=== PATIENT | male | born 1935 | race Caucasian/White ===

== ENCOUNTER 2021-09-14 15:42 | Inpatient (IN) | payer MEDICARE, OTHER ==
[~2021-09-14] VITALS: Ht 172.7 cm; Wt 83.5 kg
--- NOTE | 2021-09-14 15:50 | NUR ---
bc39, from home, weakness x 3 weeks and 02 desat 89% on RA, BS 174
[2021-09-14] MEDS ORDERED: ACETAMINOPHEN 650 MG/SUPP.RECT RC ONE ×2 (16:00→16:05)
[2021-09-14] MEDS ORDERED: CEFEPIME 1 GM in IV D5W 50 ML IV ONE (16:00)
[2021-09-14] MEDS ORDERED: VANCOMYCIN 1 GM in IV D5W 250 ML IV ONE (16:00)
--- NOTE | 2021-09-14 16:00 | NUR ---
INITIATED LAC #18G S/L AND RFA #20G S/L PATENT AND INTACT
[2021-09-14] MEDS ORDERED: CEFEPIME 1 GM VIAL ONE (16:05)
[2021-09-14] MEDS ORDERED: VANCOMYCIN 1 GM VIAL ONE (16:05)
[2021-09-14 16:11] LABS: BASOPHILS % (AUTO) 0.1 % (0.0-2.0); HEMATOCRIT 38 % (39-51); HEMOGLOBIN 12.5 g/dL (13.5-17.5); LYMPHOCYTES # (AUTO) 1.6 K/uL (0.8-4.8); LYMPHOCYTES % (AUTO) 23.6 % (20.0-44.0); MEAN CORPUSCULAR HGB CONC 33 g/dl (31.0-36.0); MEAN CORPUSCULAR VOLUME 91 fL (80-96); MONOCYTES # (AUTO) 0.4 K/uL (0.1-1.30); MONOCYTES % (AUTO) 6.4 % (2.0-12.0); NEUTROPHILS # (AUTO) 4.7 K/uL (1.8-8.9); NEUTROPHILS % (AUTO) 69.9 % (43.0-81.0); PLATELET COUNT (AUTO) 103 K/uL (150-450); RED BLOOD CELL COUNT(AUTO) 4.14 MIL/uL (4.5-6.0); WHITE BLOOD COUNT (AUTO) 6.8 K/uL (4.3-11.0)
--- NOTE | 2021-09-14 16:17 | NUR ---
F/C INSERTED WITH YELLOW URINE OUTPUT. PATENT AND INTACT
[2021-09-14] MEDS ORDERED: GLIM2TAB31 PO (16:18)
[2021-09-14] MEDS ORDERED: ERGO500093 PO (16:18)
[2021-09-14] MEDS ORDERED: MAGN400O6 PO (16:18)
[2021-09-14] MEDS ORDERED: SITA100T PO (16:18)
[2021-09-14] MEDS ORDERED: PANT40TA49 PO (16:18)
[2021-09-14] MEDS ORDERED: DOCU-275 PO (16:18)
[2021-09-14] MEDS ORDERED: FERR325T24 PO (16:18)
[2021-09-14] MEDS ORDERED: CYAN500T9 PO (16:18)
[2021-09-14] MEDS ORDERED: ROSU10TA29 PO (16:18)
[2021-09-14] MEDS ORDERED: SENN-261 PO (16:18)
[2021-09-14] MEDS ORDERED: ASPI-1420 PO (16:18)
[2021-09-14] MEDS ORDERED: METF-440 PO (16:18)
[2021-09-14 16:20] LABS: CALCIUM, SERUM 8.6 mg/dL (8.5-10.1); CARBON DIOXIDE 25 mmol/L (21-32); CHLORIDE 104 mmol/L (98-107); CREATININE 1.7 mg/dL (0.6-1.3); GLUCOSE 151 mg/dL (74-106); POTASSIUM 3.9 mmol/L (3.5-5.1); SODIUM SERUM 141 mmol/L (136-145); UREA NITROGEN, BLOOD 24 mg/dL (7-18)
[2021-09-14] MEDS ORDERED: BIMA2.5D5 EACHEYE (16:21)
[2021-09-14] MEDS ORDERED: BRIM5DRO EACHEYE (16:21)
[2021-09-14] MEDS ORDERED: DORZ10DR11 EACHEYE (16:21)
[2021-09-14 16:26] LABS: ALANINE AMINOTRANSFERASE 19 U/L (12-78); ALBUMIN 2.8 g/dL (3.4-5.0); ALKALINE PHOSPHATASE 88 U/L (46-116); ASPARTATE AMINOTRANSFERASE 47 U/L (15-37); BILIRUBIN,DIRECT 0.7 mg/dL (0.0-0.2); TOTAL PROTEIN, SERUM 6.7 g/dL (6.4-8.2)
[2021-09-14 16:47] LABS: BILIRUBIN,URINE SMALL (NEGATIVE); COLOR,URINE YELLOW (YELLOW); LEUKOCYTE ESTERASE ,URINE Negative (NEGATIVE); NITRITE, URINE Negative (NEGATIVE); PH,URINE 5.5 (5.0-8.0); PROTEIN,URINE 100 mg/dl (NEGATIVE); UGLUCOSE Negative (NEGATIVE)
[2021-09-14 16:56] LABS: BACTERIA,URINE 1+ /HPF (None Seen); URINE AMORPHOUS PHOSPHATES MOD /HPF (None Seen); WBC,URINE NONE SEEN /HPF (0-3)
--- NOTE | 2021-09-14 17:00 | NUR ---
PT UNSTABLE FOR CT AT RADIOLOGY. XRAY BEING DONE AT BEDSIDE
--- NOTE | 2021-09-14 17:10 | NUR ---
PT PUT ON HIFLOW O2 AT 40L. SATTING AT 92%.
--- NOTE | 2021-09-14 17:21 | NUR ---
GAVE UPDATE TO SIRAN DAUGHTER
[2021-09-14] MEDS ORDERED: IV NS 0.9% 1,000 ML IV ONE (17:30)
--- NOTE | 2021-09-14 17:57 | NUR ---
ABG DRAWN BY RT
[2021-09-14] MEDS ORDERED: DEXAMETHASONE SOD PHOSPHATE 10 MG/ML VIAL ONE (17:58)
[2021-09-14] MEDS ORDERED: Z GUARD REMEDY 2 OZ OINT TP PRN (18:00)
[2021-09-14] MEDS ORDERED: DEXAMETHASONE SOD PHOSPHATE 10 MG/ML VIAL IV ONE (18:00)
[2021-09-14] MEDS ORDERED: ONDANSETRON HCL/PF 4 MG/2 ML VIAL IVP PRN (18:00)
[2021-09-14] MEDS ORDERED: ENOXAPARIN SODIUM 30 MG/0.3 ML DISP.SYRIN SQ SCH (18:00)
[2021-09-14] MEDS ORDERED: MAGNESIUM HYDROXIDE 30 ML UDC PO PRN (18:00)
--- NOTE | 2021-09-14 18:36 | NUR ---
NURSING SUP GAVE ICU BED 259.
--- NOTE | 2021-09-14 18:50 | NUR ---
Ray pablo in EDM - 09/14/21 at 1904 by RACQUEL REPORT GIVEN TO PROFESSIONAL AMBULANCE EMT. PT TRANSFERRING TO [facility]. ALL BELONGINGS WITH PT. VSS
--- NOTE | 2021-09-14 19:20 | NUR ---
PICCLINE NURSE AT BEDSIDE. CONSENT GIVEN BY SEPIDEH MENDOZA.
--- NOTE | 2021-09-14 19:36 | NUR ---
RN NOTE REPORT RECEIVED BY MICHELLE OLIVAS FOR NOAH.
--- NOTE | 2021-09-14 19:36 | NUR ---
REPORT GIVEN TO KEYLA CROCODILE FARMER FOR NOAH
--- NOTE | 2021-09-14 19:47 | NUR ---
RN NOTE SPOKE WITH DR. ESTRADA ABOUT PT LOW PLATELET OF 103. ORDERED TO ADMINISTER LOVENOX SCHEDULED. ORDER NOTED AND WILL CARRY OUT.
--- NOTE | 2021-09-14 19:56 | NUR ---
FARM DEMONSTRATOR AT PT'S BEDSIDE
--- NOTE | 2021-09-14 19:57 | NUR ---
COVID PCR COLLECTED VIA CONDOMINIUM MANAGER AND SENT TO LAB
[2021-09-14] MEDS: IV NS 0.9% 1,000 ML IV PRN (20:33)
[2021-09-14 20:36] VITALS: BP 99/56
--- NOTE | 2021-09-14 20:37 | NUR ---
PT TRANSFERRED TO ICU 259 VIA ACLS PROTOCOL. ALL PT BELONGINGS WITH PT. VSS
--- NOTE | 2021-09-14 20:40 | NUR ---
RN NOTE PT BROUGHT TO ICU VIA GURNEY FROM ER. PT IS ON HIGH FLOW AT 30 LPM AT 75% WITH OXYGEN SATURATION AT 92%. PT IS NOT ALERT AND IS CONFUSED. ON MONITOR SHOWING NSR. LANDEROS CATH NOTED. SACRAL WOUND NOTED. IV ACCESS ON RIGHT UPPER ARM PICC LINE, LEFT FOREARM #20, AND LEFT AC #18 NOTED. LINES FLUSHED, PATENT, AND INTACT WITH NO S/SX OF INFILTRATION. ALL SAFETY MEASURES IMPLEMENTED. BED ALARM ON. BED LOCKED AND IN LOWEST POSITION. WILL CONTINUE TO MONITOR AND ASSESS FOR ANY CHANGES.
[2021-09-14] MEDS: ENOXAPARIN SODIUM 30 MG/0.3 ML DISP.SYRIN SQ SCH (20:44)
[2021-09-14] MEDS: BRIMONIDINE TARTRATE OPHT SOLN 5 ML BOTTLE LEFTEYE SCH (20:48)
[2021-09-14 21:00] VITALS: BP 109/42
--- NOTE | 2021-09-14 21:46 | NUR ---
RT NOTE PT FIO2 TITRATED TO 75% DUE TO DESATURATION. PT CURRENTLY ON 30L 75% SAT 91%. Addendum: 09/14/21 at 2352 by CYNTHIA PARIKH RT Amended: Links added.
[2021-09-14 22:00] VITALS: BP 88/59
[2021-09-14] MEDS: ATORVASTATIN 10 MG TABLET PO SCH (22:04)
[2021-09-14 23:00] VITALS: BP 85/55
[2021-09-15] VITALS (24 sets, daily range): BP systolic 90–126; BP diastolic 40–78
--- NOTE | 2021-09-15 01:55 | NUR ---
RT NOTE FIO2 INCREASE DUE TO PT SATURATING. MICHELLE WINSTON. Addendum: 09/15/21 at 0644 by CYNTHIA PARIKH RT Amended: Links added.
[2021-09-15 04:54] LABS: BASOPHILS % (AUTO) 0.1 % (0.0-2.0); HEMATOCRIT 33 % (39-51); HEMOGLOBIN 11.1 g/dL (13.5-17.5); LYMPHOCYTES % (AUTO) 21.6 % (20.0-44.0); MEAN CORPUSCULAR HGB CONC 33 g/dl (31.0-36.0); MEAN CORPUSCULAR VOLUME 92 fL (80-96); MONOCYTES # (AUTO) 0.2 K/uL (0.1-1.30); MONOCYTES % (AUTO) 4.7 % (2.0-12.0); NEUTROPHILS # (AUTO) 3.3 K/uL (1.8-8.9); NEUTROPHILS % (AUTO) 73.6 % (43.0-81.0); PLATELET COUNT (AUTO) 84 K/uL (150-450); RED BLOOD CELL COUNT(AUTO) 3.62 MIL/uL (4.5-6.0); WHITE BLOOD COUNT (AUTO) 4.5 K/uL (4.3-11.0)
[2021-09-15 05:00] LABS: ALANINE AMINOTRANSFERASE 21 U/L (12-78); ALBUMIN 2.3 g/dL (3.4-5.0); ALKALINE PHOSPHATASE 70 U/L (46-116); ASPARTATE AMINOTRANSFERASE 41 U/L (15-37); BILIRUBIN,TOTAL 0.8 mg/dL (0.2-1.0); CALCIUM, SERUM 7.9 mg/dL (8.5-10.1); CARBON DIOXIDE 22 mmol/L (21-32); CHLORIDE 106 mmol/L (98-107); CREATININE 1.4 mg/dL (0.6-1.3); GLUCOSE 286 mg/dL (74-106); MAGNESIUM 1.7 mg/dL (1.8-2.4); PHOSPHORUS 3.6 mg/dL (2.5-4.9); POTASSIUM 3.8 mmol/L (3.5-5.1); SODIUM SERUM 140 mmol/L (136-145); TOTAL PROTEIN, SERUM 5.8 g/dL (6.4-8.2); UREA NITROGEN, BLOOD 28 mg/dL (7-18)
[2021-09-15 05:15] LABS: CHOLESTEROL 127 mg/dL (<200); HDL CHOLESTEROL 41 mg/dL (40-60); LDL 65 mg/dL (0-99); THYROID STIMULATING HORMONE 0.368 uIU/mL (0.358-3.74); TRIGLYCERIDES 87 mg/dL (30-150)
[2021-09-15] MEDS ORDERED: CEFEPIME 2 GM in IV D5W 100 ML IV SCH (06:00)
[2021-09-15 06:38] LABS: LYMPHOCYTES % (MANUAL) 22 % (16-48); MONOCYTES % (MANUAL) 4 % (0-11.0); NEUTROPHILS % (MANUAL) 74 (42-76)
--- NOTE | 2021-09-15 06:44 | NUR ---
RN NOTE NO CHANGES IN PT CONDITION DURING SHIFT. PT IS ON HIGHFLOW OXYGEN WITH CURRENT SETTINGS NOW AT 30L AND 85%. TOLERATING CURRENT SETTINGS WELL. PT ON MONITOR SHOWING NSR. LANDEROS CATH OUTPUT DURING SHIFT WAS 425ML. IV ACCESS NOTED ON RIGHT UPPER ARM PICC LINE, LEFT FOREARM #20, AND LEFT AC #18. LINES FLUSHED, PATENT, AND INTACT WITH NO S/SX OF INFILTRATION. ALL DUE MEDS GIVEN ORDERED. PT KEPT CLEAN AND COMFORTABLE. ALL SAFETY MEASURES IMPLEMENTED. BED ALARM ON. BED LOCKED AND IN LOWEST POSITION. WILL ENDORSE TO MORNING SHIFT RN FOR NOAH. .
--- NOTE | 2021-09-15 07:30 | NUR ---
RN NOTES PT FOUND SLEEPING SEMI FOWLERS POSITION DISPLAYING NO S/S OF DISTRESS, FLACC = 0 AND BREATHING IS EVEN AND UNLABORED ON HIGH FLOW OXYGEN. PT IS CONFUSED, REPORTS FROM TALEND ETL DEVELOPER RN THAT PT ATTEMPTED TO STRIKE STAFF AND REMOVE LINES. SUCH, PT ON SOFT RESTRAINTS BILATERAL WRISTS AND MITTENS APPLIED. PULSES PALAPATED BILTERALLY. MITTENS TAKEN OFF AND CAP REFILL TESTED, < 3 SECONDS BILATERALLY, THEN REAPPLIED. R UA PICC IS PATIENT AND INTACT. LANDEROS CATH IS BELOW PT DRAINING BY GRAVITY. VSS, RN WILL TREAT AND MONITOR THROUGHOUT SHIFT. SAFETY MEASURES IN PLACE, BED LOCKED AND IN LOWEST POSITION, SIDE RAILS UPX3, CALL LIGHT WITHIN REACH, BED ALARM ARMED.
[2021-09-15] MEDS: PANTOPRAZOLE 40 MG TABLET.DR PO SCH (08:00)
[2021-09-15] MEDS: Magnesium 1GM/D5W 100ML PREMIX 100 ML IV SCH ×2 (08:01→09:04)
[2021-09-15] MEDS: DOCUSATE SODIUM 100 MG CAPSULE PO SCH ×2 (09:00→17:02)
[2021-09-15] MEDS: FERROUS SULFATE (325 MG) 325 MG/TAB TABLET PO SCH ×2 (09:00→17:02)
[2021-09-15] MEDS: LINAGLIPTIN 5 MG TABLET PO SCH (09:00)
[2021-09-15] MEDS: ASPIRIN EC 81 MG TABLET.DR PO SCH (09:00)
[2021-09-15] MEDS: SENNOSIDES 8.6 MG TABLET PO SCH ×2 (09:00→17:02)
[2021-09-15] MEDS ORDERED: DEXAMETHASONE SOD PHOSPHATE 4 MG/ML VIAL IV SCH (09:00)
[2021-09-15] MEDS: CYANOCOBALAMIN 500 MCG TABLET PO SCH (09:00)
[2021-09-15] MEDS: DEXAMETHASONE SOD PHOSPHATE 4 MG/ML VIAL IV SCH (09:00)
[2021-09-15] MEDS: GLIMEPIRIDE 1 MG TABLET PO SCH ×3 (09:00→17:02)
[2021-09-15] MEDS: TIMOLOL MAL/DORZOLAM HCL OPHTH 10 ML BOTTLE EACHEYE SCH ×2 (09:01→17:03)
[2021-09-15] MEDS: BRIMONIDINE TARTRATE OPHT SOLN 5 ML BOTTLE LEFTEYE SCH ×2 (09:05→17:03)
--- NOTE | 2021-09-15 10:30 | NUR ---
RN NOTE CVP STARTED
[2021-09-15 11:51] LABS: ABG BASE EXCESS -0.9 mmol/L; ABG PH 7.467 (7.350-7.450); ABG PO2 57.1 mmHg (75.0-100.0); MetHb 0.2 % (0.0-1.5); O2Hb 89.8 % (94.0-97.0); SITE, ABG Left Radial; VENT MODE, BG SIMPLE MASK
[2021-09-15] MEDS: IV NS 0.9% 1,000 ML IV PRN (11:54)
[2021-09-15] MEDS: VANCOMYCIN 1 GM in IV D5W 250ml IV SCH (12:08)
--- NOTE | 2021-09-15 12:30 | NUR ---
TAILOR WOMEN'S GARMENT ALTERATION COMMUNICATION RN SPOKE TO FRANCES ANN TO REPORT PT'S VARIED LEVELS OF ANXIETY. TAILOR WOMEN'S GARMENT ALTERATION GAVE ORDERS, 0.25 MG ATIVAN IV ONE TIME NOW. RN READ BACK ORDER TO CONFIRM AND WILL EXECUTE DIRECTED.
[2021-09-15] MEDS ORDERED: LORAZEPAM INJ 2 MG/ML VIAL IV ONE (13:00)
[2021-09-15] MEDS ORDERED: VANCOMYCIN 1 GM in IV D5W 250ml IV SCH (16:00)
[2021-09-15] MEDS: AZITHROMYCIN 500 MG in IV D5W 250 ML IV SCH (17:02)
[2021-09-15] MEDS: ACETAMINOPHEN 325 MG TABLET PO PRN (17:02)
[2021-09-15] MEDS: CEFEPIME 2 GM in IV D5W 100 ML IV SCH (17:02)
--- NOTE | 2021-09-15 19:15 | NUR ---
RN NOTES PT FOUND SLEEPING SEMI FOWLERS POSITION DISPLAYING NO S/S OF DISTRESS, FLACC = 0 AND BREATHING IS EVEN AND UNLABORED ON HIGH FLOW OXYGEN. PT CONTINUES TO BE CONFUSED. PT STILL ON SOFT RESTRAINTS BILATERAL WRISTS AND MITTENS APPLIED. PULSES PALAPATED BILTERALLY. MITTENS TAKEN OFF AND CAP REFILL TESTED, < 3 SECONDS BILATERALLY, THEN REAPPLIED. R UA PICC IS PATIENT AND INTACT. LANDEROS CATH IS BELOW PT DRAINING BY GRAVITY. VSS, SBAR AND REPORT GIVEN TO YARN TWISTER. ALL QUESTIONS ANSWERED. SAFETY MEASURES IN PLACE, BED LOCKED AND IN LOWEST POSITION, SIDE RAILS UPX3, CALL LIGHT WITHIN REACH, BED ALARM ARMED. PT ENDORSED IN STABLE CONDITION FOR NOAH.
[2021-09-15] MEDS: ATORVASTATIN 10 MG TABLET PO SCH (21:07)
[2021-09-15] MEDS: ENOXAPARIN SODIUM 30 MG/0.3 ML DISP.SYRIN SQ SCH (21:08)
--- NOTE | 2021-09-15 23:00 | NUR ---
RN NOTE PT RESTLESS, UNABLE TO KEEP STILL TO KEEP CONSISTENT READING OF O2 SAT. PT ATTEMPTS TO BITE STAFF WHEN TRYING TO ADJUST PULSE OX
[2021-09-16] VITALS (54 sets, daily range): BP systolic 68–179; BP diastolic 46–118
--- NOTE | 2021-09-16 01:15 | NUR ---
RN NOTE PT SATURATION LOW TO MID 80S. NON REBREATHER MASK AT 15 LPM PLACED,. WILL CONT TO MONITOR O2 SAT 93% AT THIS TIME
[2021-09-16 04:51] LABS: HEMATOCRIT 35 % (39-51); HEMOGLOBIN 11.4 g/dL (13.5-17.5); LYMPHOCYTES % (AUTO) 6.8 % (20.0-44.0); MEAN CORPUSCULAR HGB CONC 33 g/dl (31.0-36.0); MEAN CORPUSCULAR VOLUME 92 fL (80-96); MONOCYTES # (AUTO) 0.3 K/uL (0.1-1.30); NEUTROPHILS # (AUTO) 12.9 K/uL (1.8-8.9); NEUTROPHILS % (AUTO) 91.2 % (43.0-81.0); PLATELET COUNT (AUTO) 102 K/uL (150-450); RED BLOOD CELL COUNT(AUTO) 3.81 MIL/uL (4.5-6.0); WHITE BLOOD COUNT (AUTO) 14.1 K/uL (4.3-11.0)
[2021-09-16] MEDS: CEFEPIME 2 GM in IV D5W 100 ML IV SCH ×2 (05:01→18:28)
[2021-09-16 05:10] LABS: CALCIUM, SERUM 8.2 mg/dL (8.5-10.1); CARBON DIOXIDE 24 mmol/L (21-32); CHLORIDE 108 mmol/L (98-107); CREATININE 1.3 mg/dL (0.6-1.3); GLUCOSE 313 mg/dL (74-106); MAGNESIUM 2.1 mg/dL (1.8-2.4); PHOSPHORUS 2.3 mg/dL (2.5-4.9); POTASSIUM 3.8 mmol/L (3.5-5.1); SODIUM SERUM 141 mmol/L (136-145); UREA NITROGEN, BLOOD 28 mg/dL (7-18)
[2021-09-16] MEDS: IV NS 0.9% 1,000 ML IV PRN (05:16)
[2021-09-16] MEDS: VANCOMYCIN 1 GM in IV D5W 250ml IV SCH (06:16)
--- NOTE | 2021-09-16 07:23 | NUR ---
RN CLOSING NOTE PT CONT TO REMOVE O2 SAT MONITOR, ATTEMPTS TO BITE STAFF WHEN ADJUSTING NASAL CANNULA OR MASK. PT REMAINS ON HF 40L FIO2 100% WITH NONREBREATHER MASK AT 15L. PT BED BATH DONE LINENS CHANGED. PT INDEPENDENT WITH BED MOBILITY. MONITOR FOR ASPIRATION RISK HELD MEDS IN MOUTH BEFORE SWALLOWING. SAFETY MEASURES IN PLACE. REPORT GIVEN TO DAY SHIFT RN FOR CONTINUATION OF CARE.
[2021-09-16] MEDS: PANTOPRAZOLE 40 MG TABLET.DR PO SCH (07:30)
--- NOTE | 2021-09-16 07:30 | NUR ---
RN NOTES PT FOUND RESTLESS DISPLAYING S/S OF MILD AGITATION, BREATHING IS MODERATELY STRENUOUS AND FLACC = 3. PT THROUGHOUT NIGHT WAS PLACED ON NRB TO IMPROVE OXYGENATION STATUS. PT HAS BILATERAL SOFT WRIST RESTRAINTS, PULSES PALPATED BILATERALLY FINDING RADIAL PULSE, CAP REFILL TESTED BILATERALLY AND FOUND < 3 SECONDS. XEROX MACHINE MECHANIC REPORTS S/S CONSISTENT WITH METABOLIC ENCEPHALOPATHY, INSOMNIA, RESTLESSNESS, AGITATION, ALTERATION IN MENTAL STATUS INCLUDING AN ATTEMPT TO BITE XEROX MACHINE MECHANIC RN. R UA PICC IS PATIENT AND INTACT. LANDEROS CATH BELOW PATIENT DRAINING BY GRAVITY. RN WILL MONITOR AND TREAT THROUGHOUT SHIFT. SAFETY MEASURES IN PLACE, BED LOCKED AND IN LOWEST POSITION, SIDE RAILS UPX2, CALL LIGHT WITHIN REACH, PT INSTRUCTED TO CALL FOR ASSISTANCE.
--- NOTE | 2021-09-16 07:37 | NUR ---
WOUND CARE CONSULT: REVIEWED CHART, NURSING DOCUMENTATION AND PHOTO WHICH INDICATED SACRAL/GLUTEAL CREASE SCARRING WITH INCONTINENCE/MOISTURE ASSOCIATED SKIN DAMAGE OVER SCARRING. RECOMMENDATIONS MADE FOR SKIN PROTECTION. DISCUSSED WITH NURSING STAFF. PT IS ON MELISSA ISOFLEX LOW AIRLOSS BED. PER NURSING STAFF, PT MOVES ABOUT IN THE BED. MD IN AGREEMENT WITH PLAN OF CARE.
--- NOTE | 2021-09-16 08:30 | NUR ---
RN NOTE ST EVALUATED PT, GAVE RECOMMENDATION OF INSERTION OF NGT. RN WILL RELAY THIS INFORMATION TO HOSPITALIST.
[2021-09-16] MEDS: LINAGLIPTIN 5 MG TABLET PO SCH (09:00)
[2021-09-16] MEDS: SENNOSIDES 8.6 MG TABLET PO SCH (09:00)
[2021-09-16] MEDS: ASPIRIN EC 81 MG TABLET.DR PO SCH (09:00)
[2021-09-16] MEDS: DOCUSATE SODIUM 100 MG CAPSULE PO SCH ×2 (09:00→17:09)
[2021-09-16] MEDS: GLIMEPIRIDE 1 MG TABLET PO SCH (09:00)
[2021-09-16] MEDS: FERROUS SULFATE (325 MG) 325 MG/TAB TABLET PO SCH (09:00)
[2021-09-16] MEDS: CYANOCOBALAMIN 500 MCG TABLET PO SCH (09:00)
[2021-09-16] MEDS: BRIMONIDINE TARTRATE OPHT SOLN 5 ML BOTTLE LEFTEYE SCH ×2 (09:46→17:09)
[2021-09-16] MEDS: DEXAMETHASONE SOD PHOSPHATE 4 MG/ML VIAL IV SCH (09:46)
[2021-09-16] MEDS: TIMOLOL MAL/DORZOLAM HCL OPHTH 10 ML BOTTLE EACHEYE SCH ×2 (09:46→17:10)
[2021-09-16] MEDS ORDERED: ETOMIDATE 2 MG/ML VIAL IV ONE (10:58)
[2021-09-16] MEDS ORDERED: SUCCINYLCHOLINE CHLORIDE 20 MG/ML VIAL IV ONE (10:58)
[2021-09-16] MEDS ORDERED: Sodium Phosphate 30 MMOL in IV NS 0.9% 250 ML IV SCH (11:00)
[2021-09-16] MEDS ORDERED: PROPOFOL 100 ML IV PRN (12:30)
[2021-09-16] MEDS: NOREPINEPHRINE 8 MG in IV NS 0.9% 242 ML IV PRN (12:40)
[2021-09-16] MEDS: PROPOFOL 100 ML IV PRN ×3 (12:58→22:19)
--- NOTE | 2021-09-16 13:20 | NUR ---
RT PEEP INCREASED TO [address] VALDEZ Addendum: 09/16/21 at 1543 by CHRISTINA ESPINOSA RT Amended: Links added.
[2021-09-16 13:30] LABS: C-REACTIVE PROTEIN 9.6 mg/dL (0.0-0.9)
[2021-09-16] MEDS ORDERED: REMDESIVIR (CHARGED) 200 MG, *LOADING DOSE 1 EA in IV NS 0.9% 210 ML IV ONE (15:00)
[2021-09-16] MEDS ORDERED: MAGNESIUM HYDROXIDE 30 ML UDC GT PRN (16:30)
[2021-09-16] MEDS ORDERED: FERROUS SULFATE (325 MG) 325 MG/TAB TABLET GT SCH (17:00)
[2021-09-16] MEDS: GLIMEPIRIDE 1 MG TABLET GT SCH (17:09)
[2021-09-16] MEDS: SENNOSIDES 8.6 MG TABLET GT SCH (17:09)
[2021-09-16] MEDS: AZITHROMYCIN 500 MG in IV D5W 250 ML IV SCH (17:16)
[2021-09-16] MEDS: VANCOMYCIN 0.75 GM in IV D5W 250 ML IV SCH (18:28)
--- NOTE | 2021-09-16 19:30 | NUR ---
N NOTES PT FOUND SUPINE DISPLAYING NO S/S OF DISRESS AND FLACC = 0, NAZIA'S = 3 AND BILATERAL RISE AND FALL OF THE CHEST IS OBSERVED. PT HAS BILATERAL SOFT WRIST RESTRAINTS, PULSES PALPATED BILATERALLY FINDING RADIAL PULSE, CAP REFILL TESTED BILATERALLY AND FOUND < 3 SECONDS. R UA PICC IS PATIENT AND INTACT. LANDEROS CATH BELOW PATIENT DRAINING BY GRAVITY. VSS, SBAR AND REPORT GIVEN TO HADOOP ENGINEER RN. ALL QUESTIONS ANSWERED. SAFETY MEASURES IN PLACE, BED LOCKED AND IN LOWEST POSITION, SIDE RAILS UPX2, CALL LIGHT WITHIN REACH, PT INSTRUCTED TO CALL FOR ASSISTANCE. ALL QUESTIONS ANSWERED. Addendum: 09/16/21 at 1939 by TAJ SKY RN I MEAN PT ENDORSED IN STABLE CONDITION FOR NOAH.
--- NOTE | 2021-09-16 20:00 | NUR ---
RN NOTE RECEIVED PT ORALLY INTUBATED [facility] WITH SETTINGS OF AC 24 TV 450 F1O2 80% PEEP 12. NO SIGNS OF DISTRESS NOTED. PT SEDATED, ON PROPOFOL AT 65MCG/KG/MIN, LEVO AT 0.02MCG/KG/MIN AND ON IVF NS AT 75ML/HR. OGT IN PLACE AND PATENT, NO RESIDUALS NOTED. PT WITH LANDEROS IN PLACE DRAINING CLEAR URINE OUTPUT. ALL SAFETY IN PLACE. WILL CONTINUE TO MONITOR.
--- NOTE | 2021-09-16 20:11 | NUR ---
RECEIVE PT INTUBATED 7.5 ETT SECURED AT 24 CM AT THE LIP. NO RESP DISTRESS. PT TOLERATING VENT SETTINGS. VENT ALARMS SET AND AUDIBLE. CONTINUE TO MONITOR. Addendum: 09/16/21 at 2012 by MARY ANN WALSH RT Amended: Links added.
[2021-09-16] MEDS: ENOXAPARIN SODIUM 30 MG/0.3 ML DISP.SYRIN SQ SCH (21:29)
--- NOTE | 2021-09-16 23:00 | NUR ---
Stat EKG done.
--- NOTE | 2021-09-16 23:07 | NUR ---
RN NOTE 2129 LEVOPHED RESTARTED, BP LOW, STARTED DOSE PER PROTOCOL. PT HEART RATE DROP DOWN TO 38-40S AT AROUND 0. PROPOFOL DECREASED PER PROTOCOL. NO SIGNS OF DISTRESS NOTED. HEART RATE AND BP INCREASED AROUND 2146 HR AT 70. AT 2158 PT CONVERTED TO AFIB WITH HR OF 122. TITRATED LEVOPHED PER PROTOCOL. EKG ORDERED SHOWS AFIB. DR BACK MADE AWARE, PT WITH OCCASIONAL PVC SINCE AM. PT CONVERTING TO IN AND OUT SR AND AND AFIB. PT HR AT THIS TIME IN 90S. NO ORDERS WERE MADE AT THIS TIME, PER MD TO MONITOR PT FOR NOW.
[2021-09-17] VITALS (78 sets, daily range): BP systolic 80–136; BP diastolic 52–89
[2021-09-17] MEDS: PROPOFOL 100 ML IV PRN ×6 (00:43→18:29)
[2021-09-17] MEDS: IV NS 0.9% 1,000 ML IV PRN ×2 (01:54→15:31)
[2021-09-17 04:27] LABS: BASOPHILS % (AUTO) 0.2 % (0.0-2.0); HEMATOCRIT 38 % (39-51); HEMOGLOBIN 12.3 g/dL (13.5-17.5); LYMPHOCYTES # (AUTO) 1.2 K/uL (0.8-4.8); LYMPHOCYTES % (AUTO) 5.6 % (20.0-44.0); MEAN CORPUSCULAR HGB CONC 33 g/dl (31.0-36.0); MEAN CORPUSCULAR VOLUME 93 fL (80-96); MONOCYTES # (AUTO) 0.4 K/uL (0.1-1.30); MONOCYTES % (AUTO) 2.2 % (2.0-12.0); PLATELET COUNT (AUTO) 141 K/uL (150-450); RED BLOOD CELL COUNT(AUTO) 4.05 MIL/uL (4.5-6.0); WHITE BLOOD COUNT (AUTO) 20.6 K/uL (4.3-11.0)
[2021-09-17 04:56] LABS: ALANINE AMINOTRANSFERASE 28 U/L (12-78); ALBUMIN 2.1 g/dL (3.4-5.0); ALKALINE PHOSPHATASE 89 U/L (46-116); ASPARTATE AMINOTRANSFERASE 52 U/L (15-37); BILIRUBIN,DIRECT 0.7 mg/dL (0.0-0.2); CARBON DIOXIDE 20 mmol/L (21-32); CHLORIDE 105 mmol/L (98-107); CREATININE 1.1 mg/dL (0.6-1.3); PHOSPHORUS 4.6 mg/dL (2.5-4.9); POTASSIUM 4.2 mmol/L (3.5-5.1); SODIUM SERUM 139 mmol/L (136-145); TOTAL PROTEIN, SERUM 5.9 g/dL (6.4-8.2); UREA NITROGEN, BLOOD 26 mg/dL (7-18)
[2021-09-17 05:16] LABS: GLUCOSE 403 mg/dL (74-106)
[2021-09-17] MEDS: CEFEPIME 2 GM in IV D5W 100 ML IV SCH ×2 (05:34→18:26)
--- NOTE | 2021-09-17 05:38 | NUR ---
RN NOTE RT DECREASED PT FIO2 TO 60%. NO SIGNS OF DISTRESS. WILL CONTINUE TO MONITOR.
--- NOTE | 2021-09-17 05:40 | NUR ---
FIO2 TITRATED TO 60%, O2 SAT 100%. RN NOTIFIED.
[2021-09-17] MEDS: VANCOMYCIN 0.75 GM in IV D5W 250 ML IV SCH ×2 (06:22→18:30)
--- NOTE | 2021-09-17 06:25 | NUR ---
RN NOTE PT BLOOD GLUCOSE 403. PAGED DR BACK 2X. AWAITING FOR CALL BACK.
--- NOTE | 2021-09-17 07:04 | NUR ---
RN NOTE PT TOLERATING VENT SETTINGS. NO SIGNS OF DISTRESS NOTED. O2 SAT AT 100%. TELE SHOWS NSR NOW WITH PVCS AND PACS WITH HR OF 84. CONTINUE ON LEVOPHED AT 0.04MCG/KG/MIN. PROPOFOL AT 50MCG/KG/MIN AND NS AT 75ML/HR. ALL DUE IV ATBS WERE GIVEN ORDERED. PT REMAIN AFEBRILE. LANDEROS DRAINING WELL, DRAINED 800ML CLEAR URINE OUTPUT. ALL SAFETY MEASURES MAINTAINED. PCR STILL PENDING. PAGED DR BACK 3X FO GLUCOSE RESULT. NO CALL BACK YET. WILL ENDORSE TO NEXT SHIFT NURSE FOR NOAH.
--- NOTE | 2021-09-17 07:40 | NUR ---
ICU/RN PT IS INTUBATED ON THE VENT AC MODE,FIO2-60%,PEEP-12. SEDATED WITH DIPRIVAN .ON LEVOPHED DRIP.AFEBRILE.RIGHT UPPER ARM PICC LINE.IV INFUSING ORDERED.OG TUBE CLAMPED.F/C IN PLACE DRAINING WITH YELLOW URINE.BILATERAL SOFT WRIST RESTRAINS ON.CVP-6.SUCTION PROVIDED.REPOSITION FOR COMFORT.LABS REVIEW. NOTIFIED.
[2021-09-17] MEDS: CYANOCOBALAMIN 500 MCG TABLET GT SCH (08:22)
[2021-09-17] MEDS: DEXAMETHASONE SOD PHOSPHATE 4 MG/ML VIAL IV SCH (08:23)
[2021-09-17] MEDS: GLIMEPIRIDE 1 MG TABLET GT SCH ×3 (08:23→16:29)
[2021-09-17] MEDS: PANTOPRAZOLE 40 MG TABLET.DR PO SCH (08:24)
[2021-09-17] MEDS: SENNOSIDES 8.6 MG TABLET GT SCH ×2 (08:24→16:28)
[2021-09-17] MEDS: LINAGLIPTIN 5 MG TABLET GT SCH (08:24)
[2021-09-17] MEDS: TIMOLOL MAL/DORZOLAM HCL OPHTH 10 ML BOTTLE EACHEYE SCH ×2 (08:25→16:29)
[2021-09-17] MEDS ORDERED: DEXTROSE 50%-WATER 50 ML DISP.SYRIN IV PRN ×2 (08:30→19:30)
[2021-09-17] MEDS: HYDROCORTISONE SOD SUCCINATE 100 MG/2 ML VIAL IV SCH ×3 (08:46→20:16)
[2021-09-17] MEDS: FERROUS SULFATE UDC 300 MG/5 ML UDC GT SCH ×3 (08:47→18:28)
[2021-09-17] MEDS: ASPIRIN EC 81 MG TABLET.DR PO SCH (08:47)
[2021-09-17] MEDS: DOCUSATE SODIUM LIQ 100 MG/10 ML UDC NG SCH ×2 (08:47→16:29)
[2021-09-17] MEDS: BRIMONIDINE TARTRATE OPHT SOLN 5 ML BOTTLE LEFTEYE SCH ×2 (08:48→16:29)
--- NOTE | 2021-09-17 09:00 | NUR ---
ICU/RN DUE MEDS ARE GIVEN ORDERED.ABG DONE.DR VALDEZ SEEN THE PT NEW ORDERS RECEIVED. UNABLE PROVIDE SEDTION VACATION.PT IS CRITICAL ON 60% FIO2 AND PEEP12. HAS COVID -19. NOTIFIED.
[2021-09-17] MEDS ORDERED: REMDESIVIR (CHARGED) 100 MG in IV NS 0.9% 230 ML IV SCH (12:00)
[2021-09-17] MEDS: BLOOD SUGAR DIAGNOSTIC 1 EACH STRIP IN SCH ×3 (12:09→23:51)
[2021-09-17 12:22] LABS: C-REACTIVE PROTEIN 16.5 mg/dL (0.0-0.9)
[2021-09-17] MEDS: ENOXAPARIN SODIUM 40 MG/0.4 ML DISP.SYRIN SQ SCH ×2 (12:29→20:19)
[2021-09-17] MEDS ORDERED: diphenhydrAMINE HCL 50 MG/ML VIAL IV ONE (12:30)
[2021-09-17] MEDS: FLUDROCORTISONE 0.1 MG TABLET NG SCH ×3 (12:30→23:51)
[2021-09-17] MEDS ORDERED: ACETAMINOPHEN 650 MG/20.3 ML UDC PO ONE (12:30)
[2021-09-17] MEDS ORDERED: TOCILIZUMAB 600 MG in IV NS 0.9% 70 ML IV ONE (13:00)
[2021-09-17] MEDS: INSULIN REGULAR, HUMAN 100 UNIT/ML 3 ML VIAL SQ PRN ×3 (13:22→23:58)
[2021-09-17] MEDS: GLUCERNA 1.2 1,000 ML BOTTLE GT PRN (15:17)
[2021-09-17] MEDS: REMDESIVIR (CHARGED) 100 MG in IV NS 0.9% 100 ML IV SCH (15:17)
[2021-09-17] MEDS: AZITHROMYCIN 500 MG in IV D5W 250 ML IV SCH (16:28)
--- NOTE | 2021-09-17 17:00 | NUR ---
ICU/RN PM CARE PROVIDED.DUE MEDS ARE GIVEN ORDERED. SUCTION PROVIDED.REPOSITION FOR COMFORT
--- NOTE | 2021-09-17 18:30 | NUR ---
ICU/RN BS -[phone] AND 438. NOTIFIED.NEW ORDERS RECIEVED
--- NOTE | 2021-09-17 19:00 | NUR ---
RN NOTE REPORT RECEIVED FROM MATHEW MARTINEZ, PATIENT IN BED, SEDATED, IN NO S/SX OF ACUTE DISTRESS AT THIS TIME. SATURATION AT 100% ON ET TUBE 7.5, 23 CM ON THE LIP CONNECTED TO MECHANICAL VENT WITH PRESCRIBED SETTINGS: AC 24, TV 450, FIO2 50%, PEEP 12; SR ON THE MONITOR, HR IS 90. NOTED IV SITE AT LAC 18G LEAKING, REMOVED ASEPTICALLY, SITE BENIGN, NO BLEEDING NOTED, AND OCTAVIA PICC LINE, ALL HUBS PATENT AND FLUSHING WELL, NO S/S OF INFECTION, WITH CVP IN PLACE READING 4 mmHg ON THE MONITOR, IV FLUID OF NS AT 50 ML/HR, LEVOPHED AT 0.04 MCG/KG/MIN, AND PROPOFOL AT 50 MCG/KG/MIN. NOTED OG TUBE INTACT POSITIVE PLACEMENT NOTED, NO RESIDUAL, WITH TUBE FEEDING OF GLUCERNA AT 30 ML/HR. LANDEROS CATHETER CONNECTED TO URINE BAG IN PLACE DRAINING TO A CLEAR, YELLOW OUTPUT. SAFETY MEASURES IMPLEMENTED. PATIENT BED ALARM IS ON. HEAD OF BED ELEVATED. BED IS LOCKED, IN LOWEST POSITION AND SIDE RAILS UP. CALL LIGHT WITHIN REACH OF THE PATIENT. WILL CONTINUE TO MONITOR AND REASSESS FOR ANY CHANGES.
[2021-09-17] MEDS: NOREPINEPHRINE 8 MG in IV NS 0.9% 242 ML IV PRN (19:04)
[2021-09-18] VITALS (89 sets, daily range): BP systolic 71–146; BP diastolic 50–95
[2021-09-18] MEDS ORDERED: BLOOD SUGAR DIAGNOSTIC 1 EACH STRIP IN SCH
[2021-09-18] MEDS: ACETAMINOPHEN 325 MG TABLET PO PRN (00:47)
[2021-09-18] MEDS: CEFEPIME 2 GM in IV D5W 100 ML IV SCH ×2 (05:07→18:04)
[2021-09-18] MEDS: HYDROCORTISONE SOD SUCCINATE 100 MG/2 ML VIAL IV SCH ×3 (05:07→20:16)
[2021-09-18 05:10] LABS: BASOPHILS % (AUTO) 0.1 % (0.0-2.0); HEMATOCRIT 38 % (39-51); HEMOGLOBIN 12.4 g/dL (13.5-17.5); LYMPHOCYTES # (AUTO) 0.6 K/uL (0.8-4.8); LYMPHOCYTES % (AUTO) 5.5 % (20.0-44.0); MEAN CORPUSCULAR HGB CONC 33 g/dl (31.0-36.0); MEAN CORPUSCULAR VOLUME 92 fL (80-96); MONOCYTES # (AUTO) 0.3 K/uL (0.1-1.30); MONOCYTES % (AUTO) 2.9 % (2.0-12.0); NEUTROPHILS # (AUTO) 10.2 K/uL (1.8-8.9); NEUTROPHILS % (AUTO) 91.5 % (43.0-81.0); PLATELET COUNT (AUTO) 124 K/uL (150-450); RED BLOOD CELL COUNT(AUTO) 4.12 MIL/uL (4.5-6.0); WHITE BLOOD COUNT (AUTO) 11.2 K/uL (4.3-11.0)
[2021-09-18] MEDS: BLOOD SUGAR DIAGNOSTIC 1 EACH STRIP IN SCH ×3 (05:14→18:17)
[2021-09-18] MEDS: INSULIN REGULAR, HUMAN 100 UNIT/ML 3 ML VIAL SQ PRN ×3 (05:15→18:16)
[2021-09-18 05:21] LABS: MAGNESIUM 2.3 mg/dL (1.8-2.4); PHOSPHORUS 2.7 mg/dL (2.5-4.9)
[2021-09-18 05:25] LABS: ALBUMIN 1.9 g/dL (3.4-5.0); BILIRUBIN,DIRECT 0.6 mg/dL (0.0-0.2); BILIRUBIN,TOTAL 0.8 mg/dL (0.2-1.0); CALCIUM, SERUM 8.2 mg/dL (8.5-10.1); CREATININE 1.3 mg/dL (0.6-1.3); TOTAL PROTEIN, SERUM 5.6 g/dL (6.4-8.2)
[2021-09-18] MEDS: FLUDROCORTISONE 0.1 MG TABLET NG SCH ×3 (05:31→17:41)
[2021-09-18] MEDS: VANCOMYCIN 1 GM in IV D5W 250 ML IV SCH ×2 (05:32→18:44)
[2021-09-18 05:48] LABS: CREATINE KINASE, TOTAL 41 U/L (39-308); FERRITIN 3496 ng/mL (8-388)
[2021-09-18] MEDS: PROPOFOL 100 ML IV PRN ×6 (06:19→22:12)
--- NOTE | 2021-09-18 07:15 | NUR ---
RN OPENING NOTES RECEIVED PT IN BED, SEDATED. ON ETT 7.5/23 CM ON THE LIP [facility], SETTINGS: AC:24, TV:450, FIO2:50% AND PEEP OF 12. NO SOB OR ANY S/SX OF ACUTE DISTRESS AT THIS TIME. SR ON THE MONITOR. IV ACCESS ON OCTAVIA PICC LINE INTACT, PATENT AND FLUSHED. CVP IN PLACE READING 5 mmHg ON THE MONITOR. IVF OF NS @50 ML/HR, LEVO @0.04 MCG/KG/MIN AND PROPOFOL @50 MCG/KG/MIN. OG TUBE IN PLACE. POSITIVE PLACEMENT NOTED, NO RESIDUAL. TUBE FEEDING OF GLUCERNA @30 ML/HR. LANDEROS CATH IN PLACE DRAINING TO A CLEAR, YELLOW URINE. SAFETY MEASURES IN PLACE. BED LOCKED AND IN LOWEST POSITION WITH SIDE RAILS UP. WILL CONTINUE TO MONITOR.
[2021-09-18] MEDS: FERROUS SULFATE UDC 300 MG/5 ML UDC GT SCH ×3 (07:58→17:41)
[2021-09-18] MEDS: PANTOPRAZOLE 40 MG TABLET.DR PO SCH (07:58)
[2021-09-18] MEDS: DOCUSATE SODIUM LIQ 100 MG/10 ML UDC NG SCH ×2 (08:32→16:54)
[2021-09-18] MEDS: GLIMEPIRIDE 1 MG TABLET GT SCH ×3 (08:33→16:53)
[2021-09-18] MEDS: DEXAMETHASONE SOD PHOSPHATE 4 MG/ML VIAL IV SCH (08:33)
[2021-09-18] MEDS: LINAGLIPTIN 5 MG TABLET GT SCH (08:33)
[2021-09-18] MEDS: ASPIRIN EC 81 MG TABLET.DR PO SCH (08:33)
[2021-09-18] MEDS: CYANOCOBALAMIN 500 MCG TABLET GT SCH (08:33)
[2021-09-18] MEDS: SENNOSIDES 8.6 MG TABLET GT SCH ×2 (08:33→16:53)
[2021-09-18] MEDS: BRIMONIDINE TARTRATE OPHT SOLN 5 ML BOTTLE LEFTEYE SCH ×2 (08:34→16:55)
[2021-09-18] MEDS: TIMOLOL MAL/DORZOLAM HCL OPHTH 10 ML BOTTLE EACHEYE SCH ×2 (08:34→16:55)
[2021-09-18] MEDS: ENOXAPARIN SODIUM 40 MG/0.4 ML DISP.SYRIN SQ SCH ×2 (08:39→20:03)
[2021-09-18] MEDS: IV NS 0.9% 1,000 ML IV PRN (10:01)
[2021-09-18 11:50] LABS: C-REACTIVE PROTEIN 12.1 mg/dL (0.0-0.9)
[2021-09-18] MEDS ORDERED: HYDROCORTISONE SOD SUCCINATE 100 MG/2 ML VIAL IV SCH (14:00)
[2021-09-18] MEDS: REMDESIVIR (CHARGED) 100 MG in IV NS 0.9% 100 ML IV SCH (15:00)
[2021-09-18] MEDS: GLUCERNA 1.2 1,000 ML BOTTLE GT PRN (15:13)
[2021-09-18] MEDS: AZITHROMYCIN 500 MG in IV D5W 250 ML IV SCH (16:54)
--- NOTE | 2021-09-18 19:11 | NUR ---
RN NOTES NO SIGNIFICANT CHANGES THROUGHOUT THE SHIFT. TOLERATING VENT SETTINGS WELL. NO SIGNS OF PAIN. ALL DUE MEDS GIVEN. NEEDS ATTENDED. KEPT CLEAN AND COMFORTABLE. SAFETY MEASURES IN PLACE. ENDORSED TO NIGHT RN FOR NOAH.
--- NOTE | 2021-09-18 19:51 | NUR ---
RECEIVED PT INTUBATED 7.5 ETT SECURED AT 24 CM AT THE LIP. NO RESP DISTRESS. PT TOLERATING VENT SETTINGS. VENT ALARMS SET AND AUDIBLE. CONTINUE TO MONITOR. Addendum: 09/18/21 at 195 by MARY ANN WLASH RT Amended: Links added.
--- NOTE | 2021-09-18 20:00 | NUR ---
ICU/SKIVER BLOCKERS RECEIVED PT IN BED, SEDATED. [facility] VENT ETT 7.5/23 CM @ THE LIP, SETTINGS: AC:24, TV:450, FIO2:40% AND PEEP 8. NO SOB OR S/SX OF ACUTE DISTRESS @ THIS TIME. SR ON THE TELE. CVP IN PLACE AND RECALIBRATED READING 8 mmHg ON THE BEDSIDE MONITOR. IV ACCESS ON OCTAVIA PICC LINE INTACT, PATENT AND FLUSHED.IVF OF NS @50 ML/HR, LEVO @0.02 MCG/KG/MIN AND PROPOFOL @40 MCG/KG/MIN. OG TUBE IN PLACE. POSITIVE PLACEMENT AUSCULTATED, NO RESIDUAL. TUBE FEEDING OF GLUCERNA @30 ML/HR. LANDEROS CATH IN PLACE DRAINING CLEAR, YELLOW URINE. PT REPOSITIONED. SAFETY MEASURES IN PLACE. BED LOCKED AND IN LOWEST POSITION WITH SIDE RAILS UP. WILL CONTINUE TO MONITOR.
[2021-09-19] VITALS (97 sets, daily range): BP systolic 70–132; BP diastolic 41–92
[2021-09-19] MEDS: INSULIN REGULAR, HUMAN 100 UNIT/ML 3 ML VIAL SQ PRN ×4 (00:04→18:28)
[2021-09-19] MEDS: FLUDROCORTISONE 0.1 MG TABLET NG SCH ×5 (00:24→23:53)
[2021-09-19] MEDS: IV NS 0.9% 1,000 ML IV PRN ×2 (02:52→21:53)
[2021-09-19] MEDS: PROPOFOL 100 ML IV PRN ×5 (03:18→22:18)
[2021-09-19] MEDS: NOREPINEPHRINE 8 MG in IV NS 0.9% 242 ML IV PRN (03:19)
[2021-09-19] MEDS: IV NS 0.9% 500 ML BAG IV PRN (03:47)
[2021-09-19 05:18] LABS: BASOPHILS % (AUTO) 0.2 % (0.0-2.0); HEMATOCRIT 34 % (39-51); HEMOGLOBIN 11.5 g/dL (13.5-17.5); LYMPHOCYTES # (AUTO) 0.6 K/uL (0.8-4.8); MEAN CORPUSCULAR HGB CONC 33 g/dl (31.0-36.0); MEAN CORPUSCULAR VOLUME 92 fL (80-96); MONOCYTES # (AUTO) 0.3 K/uL (0.1-1.30); NEUTROPHILS # (AUTO) 7.5 K/uL (1.8-8.9); NEUTROPHILS % (AUTO) 89.8 % (43.0-81.0); PLATELET COUNT (AUTO) 102 K/uL (150-450); RED BLOOD CELL COUNT(AUTO) 3.74 MIL/uL (4.5-6.0); WHITE BLOOD COUNT (AUTO) 8.3 K/uL (4.3-11.0)
[2021-09-19 05:30] LABS: ALANINE AMINOTRANSFERASE 20 U/L (12-78); ALBUMIN 1.6 g/dL (3.4-5.0); ALKALINE PHOSPHATASE 68 U/L (46-116); BILIRUBIN,DIRECT 0.3 mg/dL (0.0-0.2); BILIRUBIN,TOTAL 0.6 mg/dL (0.2-1.0); CALCIUM, SERUM 7.4 mg/dL (8.5-10.1); CARBON DIOXIDE 24 mmol/L (21-32); CHLORIDE 109 mmol/L (98-107); CREATININE 1.1 mg/dL (0.6-1.3); GLUCOSE 272 mg/dL (74-106); MAGNESIUM 1.9 mg/dL (1.8-2.4); PHOSPHORUS 1.2 mg/dL (2.5-4.9); POTASSIUM 3.3 mmol/L (3.5-5.1); SODIUM SERUM 140 mmol/L (136-145); TOTAL PROTEIN, SERUM 4.7 g/dL (6.4-8.2); UREA NITROGEN, BLOOD 23 mg/dL (7-18)
[2021-09-19] MEDS: BLOOD SUGAR DIAGNOSTIC 1 EACH STRIP IN SCH ×5 (05:35→23:51)
[2021-09-19] MEDS: HYDROCORTISONE SOD SUCCINATE 100 MG/2 ML VIAL IV SCH ×3 (05:36→20:08)
[2021-09-19] MEDS: CEFEPIME 2 GM in IV D5W 100 ML IV SCH ×2 (05:36→18:15)
[2021-09-19] MEDS: VANCOMYCIN 1 GM in IV D5W 250 ML IV SCH ×2 (06:00→20:50)
[2021-09-19 06:01] LABS: CREATINE KINASE, TOTAL 31 U/L (39-308); FERRITIN 2733 ng/mL (8-388)
[2021-09-19 06:36] LABS: ASPARTATE AMINOTRANSFERASE 23 U/L (15-37)
--- NOTE | 2021-09-19 06:50 | NUR ---
ICU NOTES Patient resting.VS remain stable.SR/SB HI 40'S.No acute distress noted.Bathed and complete linens changed.Turned and repositioned Q 2 hrs offloading pressure points. Pre-op Check list initiated.FSBS wnl.No significant changes noted during the shift. Addendum: 09/19/21 at 0655 by AMOL SHAFER RN Please note:Wrong entry.
--- NOTE | 2021-09-19 07:10 | NUR ---
RN OPENING NOTES RECEIVED PT IN BED, SEDATED. ON ETT 7.5/23 CM ON THE LIP CONNECTED TO [facility] VENT, SETTINGS: AC:24, TV:450, FIO2:40% AND PEEP OF 8. NO SOB OR ANY S/SX OF ACUTE DISTRESS AT THIS TIME. SR ON THE MONITOR. IV ACCESS ON OCTAVIA PICC LINE INTACT, PATENT AND FLUSHED. CVP IN PLACE READING 5 mmHg ON THE MONITOR. IVF OF NS @50 ML/HR, LEVO @0.02 MCG/KG/MIN AND PROPOFOL @40 MCG/KG/MIN. OG TUBE IN PLACE. POSITIVE PLACEMENT NOTED, NO RESIDUAL. TUBE FEEDING OF GLUCERNA @30 ML/HR. LANDEROS CATH IN PLACE DRAINING TO A CLEAR, YELLOW URINE. SAFETY MEASURES IN PLACE. BED LOCKED AND IN LOWEST POSITION WITH SIDE RAILS UP. WILL CONTINUE TO MONITOR.
[2021-09-19] MEDS: FERROUS SULFATE UDC 300 MG/5 ML UDC GT SCH ×3 (08:15→17:52)
[2021-09-19] MEDS: PANTOPRAZOLE 40 MG TABLET.DR PO SCH (08:15)
[2021-09-19] MEDS: GLIMEPIRIDE 1 MG TABLET GT SCH ×3 (08:28→17:21)
[2021-09-19] MEDS: CYANOCOBALAMIN 500 MCG TABLET GT SCH (08:28)
[2021-09-19] MEDS: DOCUSATE SODIUM LIQ 100 MG/10 ML UDC NG SCH ×2 (08:28→17:22)
[2021-09-19] MEDS: LINAGLIPTIN 5 MG TABLET GT SCH (08:28)
[2021-09-19] MEDS: SENNOSIDES 8.6 MG TABLET GT SCH ×2 (08:29→17:21)
[2021-09-19] MEDS: TIMOLOL MAL/DORZOLAM HCL OPHTH 10 ML BOTTLE EACHEYE SCH ×2 (08:29→17:21)
[2021-09-19] MEDS: ASPIRIN EC 81 MG TABLET.DR PO SCH (08:29)
[2021-09-19] MEDS: BRIMONIDINE TARTRATE OPHT SOLN 5 ML BOTTLE LEFTEYE SCH ×2 (08:29→17:21)
[2021-09-19] MEDS: ENOXAPARIN SODIUM 40 MG/0.4 ML DISP.SYRIN SQ SCH ×2 (08:43→20:02)
[2021-09-19] MEDS ORDERED: POTASSIUM CHLORIDE 20 MEQ POWDER PACKET GT ONE (09:00)
[2021-09-19] MEDS: NEUTRA PHOS 1 POWD.PACKET PO SCH ×2 (09:23→17:23)
--- NOTE | 2021-09-19 10:00 | NUR ---
RN NOTES SEDATION VACATION PER DR. DAMON.
--- NOTE | 2021-09-19 14:00 | NUR ---
RN NOTES PT BREATHING IS LABORED. STARTING TO BE AGITATED. SEDATION BACK ON.
[2021-09-19] MEDS: REMDESIVIR (CHARGED) 100 MG in IV NS 0.9% 100 ML IV SCH (14:30)
[2021-09-19] MEDS: GLUCERNA 1.2 1,000 ML BOTTLE GT PRN (15:37)
[2021-09-19] MEDS: AZITHROMYCIN 500 MG in IV D5W 250 ML IV SCH (17:14)
--- NOTE | 2021-09-19 19:55 | NUR ---
RT NOTE PT RECEIVED INTUBATED WITH 7.5 ET TUBE @ 24 CM. MOVED ET TUBE TO MID LIP. CUFF INFLATED. SUCTION DONE, ET TUBE SECURED AND PATENT. VENT PLUGGED TO RED OUTLET. ALARMS ON AND AUDIBLE. INCREASED FIO2 TO 60% DUE TO DESATURATION. MICHELLE NAVA NOTIFIED. WILL CONTINUE TO MONITOR CLOSELY. Addendum: 09/19/21 at 2009 by FAN MEJÍA RT Amended: Links added.
[2021-09-20] VITALS (63 sets, daily range): BP systolic 70–127; BP diastolic 32–100
[2021-09-20] MEDS: INSULIN REGULAR, HUMAN 100 UNIT/ML 3 ML VIAL SQ PRN ×4 (00:06→18:23)
[2021-09-20] MEDS: PROPOFOL 100 ML IV PRN ×5 (01:48→20:30)
[2021-09-20] MEDS: IV NS 0.9% 500 ML BAG IV PRN (01:50)
--- NOTE | 2021-09-20 02:33 | NUR ---
ICU/ADVERTISING ANALYST CVP NO LONGER READING AFTER DAYLIGHT SAVINGS HAND STRIPPER. WAS UNSUCCESSFUL TO TROUBLE SHOOT. WILL ENDORSE TO AM SHIFT.
[2021-09-20 04:43] LABS: BASOPHILS % (AUTO) 0.2 % (0.0-2.0); HEMATOCRIT 34 % (39-51); HEMOGLOBIN 11.5 g/dL (13.5-17.5); LYMPHOCYTES # (AUTO) 0.6 K/uL (0.8-4.8); LYMPHOCYTES % (AUTO) 8.3 % (20.0-44.0); MEAN CORPUSCULAR HGB CONC 34 g/dl (31.0-36.0); MEAN CORPUSCULAR VOLUME 92 fL (80-96); MONOCYTES # (AUTO) 0.3 K/uL (0.1-1.30); MONOCYTES % (AUTO) 3.8 % (2.0-12.0); NEUTROPHILS # (AUTO) 6.3 K/uL (1.8-8.9); NEUTROPHILS % (AUTO) 87.7 % (43.0-81.0); PLATELET COUNT (AUTO) 114 K/uL (150-450); RED BLOOD CELL COUNT(AUTO) 3.73 MIL/uL (4.5-6.0); WHITE BLOOD COUNT (AUTO) 7.1 K/uL (4.3-11.0)
[2021-09-20 05:41] LABS: ALANINE AMINOTRANSFERASE 15 U/L (12-78); ALBUMIN 1.6 g/dL (3.4-5.0); ALKALINE PHOSPHATASE 69 U/L (46-116); ASPARTATE AMINOTRANSFERASE 23 U/L (15-37); BILIRUBIN,DIRECT 0.3 mg/dL (0.0-0.2); BILIRUBIN,TOTAL 0.6 mg/dL (0.2-1.0); CALCIUM, SERUM 7.5 mg/dL (8.5-10.1); CARBON DIOXIDE 21 mmol/L (21-32); CHLORIDE 111 mmol/L (98-107); GLUCOSE 303 mg/dL (74-106); PHOSPHORUS 1.6 mg/dL (2.5-4.9); POTASSIUM 4.2 mmol/L (3.5-5.1); SODIUM SERUM 141 mmol/L (136-145); TOTAL PROTEIN, SERUM 4.6 g/dL (6.4-8.2); UREA NITROGEN, BLOOD 31 mg/dL (7-18)
[2021-09-20] MEDS: HYDROCORTISONE SOD SUCCINATE 100 MG/2 ML VIAL IV SCH ×3 (05:41→20:30)
[2021-09-20] MEDS: CEFEPIME 2 GM in IV D5W 100 ML IV SCH ×2 (05:42→18:07)
[2021-09-20] MEDS: BLOOD SUGAR DIAGNOSTIC 1 EACH STRIP IN SCH ×3 (05:43→17:53)
[2021-09-20] MEDS: FLUDROCORTISONE 0.1 MG TABLET NG SCH ×3 (05:43→18:10)
[2021-09-20] MEDS: PANTOPRAZOLE 40 MG TABLET.DR PO SCH (07:30)
--- NOTE | 2021-09-20 07:30 | NUR ---
GLOVE FACTORY SEWER OPENING NOTES Patient is sedated and on propofol 50 mcg/kg and levo running 0.02 mcg to right upper arm. On mechanical vent settings tod well. Patient noted with barney cath and intact hanging to gravity with clear yellow urine. Patient will be monitored .
[2021-09-20] MEDS: LINAGLIPTIN 5 MG TABLET GT SCH (08:27)
[2021-09-20] MEDS: CYANOCOBALAMIN 500 MCG TABLET GT SCH (08:27)
[2021-09-20] MEDS: DOCUSATE SODIUM LIQ 100 MG/10 ML UDC NG SCH ×2 (08:27→18:10)
[2021-09-20] MEDS: SENNOSIDES 8.6 MG TABLET GT SCH ×2 (08:27→18:07)
[2021-09-20] MEDS: GLIMEPIRIDE 1 MG TABLET GT SCH ×3 (08:27→18:07)
[2021-09-20] MEDS: ASPIRIN EC 81 MG TABLET.DR PO SCH (08:27)
[2021-09-20] MEDS: FERROUS SULFATE UDC 300 MG/5 ML UDC GT SCH ×3 (08:27→18:07)
[2021-09-20] MEDS: ENOXAPARIN SODIUM 40 MG/0.4 ML DISP.SYRIN SQ SCH ×2 (08:31→20:33)
[2021-09-20] MEDS: TIMOLOL MAL/DORZOLAM HCL OPHTH 10 ML BOTTLE EACHEYE SCH ×2 (08:53→17:53)
[2021-09-20] MEDS: BRIMONIDINE TARTRATE OPHT SOLN 5 ML BOTTLE LEFTEYE SCH ×2 (08:53→17:53)
--- NOTE | 2021-09-20 12:00 | NUR ---
FI02 INCREASED TO 60 % BY RT
[2021-09-20] MEDS: FUROSEMIDE 40 MG/4 ML VIAL IV SCH (12:30)
[2021-09-20] MEDS: NEUTRA PHOS 1 POWD.PACKET PO SCH ×2 (12:30→17:00)
[2021-09-20] MEDS: REMDESIVIR (CHARGED) 100 MG in IV NS 0.9% 100 ML IV SCH (15:15)
[2021-09-20] MEDS: IV NS 0.9% 1,000 ML IV PRN (15:56)
[2021-09-20 16:07] LABS: C-REACTIVE PROTEIN 3.4 mg/dL (0.0-0.9)
[2021-09-20] MEDS: GLUCERNA 1.2 1,000 ML BOTTLE GT PRN (18:21)
[2021-09-20] MEDS ORDERED: NEUTRA PHOS 1 POWD.PACKET PO SCH (18:30)
--- NOTE | 2021-09-20 19:30 | NUR ---
CIRCLE SAW OPERATOR PT APPEARS ADEQUATELY SEDATED ON PROPOFOL @ 30 MCG/KG/MIN BSWR REMOVED AT THIS TIME. Addendum: 09/20/21 at 2246 by GAIL CULVER RN Amended: Links added.
--- NOTE | 2021-09-20 19:30 | NUR ---
NEGATIVE RETOUCHER PT NOTED WITH DTI AND OPEN WOUND TO SACRAL AREA; APPLIED MEPILEX AT THIS TIME.
--- NOTE | 2021-09-20 20:00 | NUR ---
MAIL CALLER CLOSING NOTES Patient is sedated and on propofol 30 mcg/kg to right upper arm. On mechanical vent settings tod well. Patient provided sedation vacation and was noted with 02 sat of 85% and patient titrated back to 30 mcg propofol. Noted with urine 0utput of 1600 cc during shift. NO bm during shift. Endorsed to next shift for NOAH.
[2021-09-20] MEDS: NOREPINEPHRINE 8 MG in IV NS 0.9% 242 ML IV PRN (20:30)
[2021-09-20] MEDS: VANCOMYCIN 1 GM in IV D5W 250 ML IV SCH (21:00)
--- NOTE | 2021-09-20 21:30 | NUR ---
HUMAN RESOURCES PARTNER PLACED PT SUPINE TO REPOSITION AND PT DESATURATED TO MID 80s.
--- NOTE | 2021-09-20 22:25 | NUR ---
WOOL HAT FORMING MACHINE TENDER FIO2 INCREASED TO 80% BY RT PT CONTINED TO DESATURATE.
[2021-09-21] VITALS (90 sets, daily range): BP systolic 58–120; BP diastolic 36–81
[2021-09-21] MEDS: FLUDROCORTISONE 0.1 MG TABLET NG SCH ×4 (00:30→17:08)
[2021-09-21] MEDS: BLOOD SUGAR DIAGNOSTIC 1 EACH STRIP IN SCH ×4 (00:30→18:36)
[2021-09-21] MEDS: IV NS 0.9% 500 ML BAG IV PRN (00:31)
[2021-09-21] MEDS: INSULIN REGULAR, HUMAN 100 UNIT/ML 3 ML VIAL SQ PRN ×4 (01:06→18:38)
[2021-09-21 04:39] LABS: BASOPHILS % (AUTO) 0.2 % (0.0-2.0); EOSINOPHILS % (AUTO) 0.2 % (0.0-6.0); HEMATOCRIT 32 % (39-51); HEMOGLOBIN 10.8 g/dL (13.5-17.5); LYMPHOCYTES # (AUTO) 0.5 K/uL (0.8-4.8); MEAN CORPUSCULAR HGB CONC 33 g/dl (31.0-36.0); MEAN CORPUSCULAR VOLUME 92 fL (80-96); MONOCYTES # (AUTO) 0.1 K/uL (0.1-1.30); MONOCYTES % (AUTO) 2.2 % (2.0-12.0); NEUTROPHILS # (AUTO) 5.9 K/uL (1.8-8.9); NEUTROPHILS % (AUTO) 89.4 % (43.0-81.0); RED BLOOD CELL COUNT(AUTO) 3.51 MIL/uL (4.5-6.0); WHITE BLOOD COUNT (AUTO) 6.6 K/uL (4.3-11.0)
[2021-09-21] MEDS: PROPOFOL 100 ML IV PRN ×5 (04:41→22:59)
[2021-09-21 04:54] LABS: CALCIUM, SERUM 7.5 mg/dL (8.5-10.1); CARBON DIOXIDE 25 mmol/L (21-32); CHLORIDE 113 mmol/L (98-107); GLUCOSE 267 mg/dL (74-106); MAGNESIUM 1.8 mg/dL (1.8-2.4); PHOSPHORUS 2.3 mg/dL (2.5-4.9); POTASSIUM 4.1 mmol/L (3.5-5.1); SODIUM SERUM 145 mmol/L (136-145); UREA NITROGEN, BLOOD 39 mg/dL (7-18)
[2021-09-21 05:01] LABS: CREATINE KINASE, TOTAL 19 U/L (39-308)
[2021-09-21] MEDS: CEFEPIME 2 GM in IV D5W 100 ML IV SCH ×2 (05:30→18:36)
[2021-09-21] MEDS: HYDROCORTISONE SOD SUCCINATE 100 MG/2 ML VIAL IV SCH ×3 (05:30→22:59)
[2021-09-21 06:14] LABS: PLATELET COUNT (AUTO) 70 K/uL (150-450)
[2021-09-21 06:30] LABS: FERRITIN 2302 ng/mL (8-388)
--- NOTE | 2021-09-21 06:30 | NUR ---
PROCESSING TECH PT NOTED TO BE DESATURATING TO LOW 80s; FIO2 INCREASED TO 80% BY RT.
--- NOTE | 2021-09-21 07:14 | NUR ---
WOUND CARE CONSULT: REVIEWED CHART, NURSING DOCUMENTATION AND PHOTOS WHICH INDICATE DEEP TISSUE INJURY TO SACRUM WHICH IS IN EVOLUTION, OVER PREVIOUS SCARRING. SACRAL SCARRING WITH DISCOLORATION/INCONTINENCE ASSOCIATED SKIN DAMAGE WAS NOTED TO BE PRESENT ON ADMISSION. PT NOTED TO HAVE MULTIPLE CO-MORBIDITIES INCLUDING HYPOXEMIC RESPIRATORY FAILURE SECONDARY TO COVID 19, CLINICAL SEPSIS, ACUTE RENAL FAILURE, CORONARY DISEASE, DIABETES AND ADRENAL INSUFFICIENCY. DUE TO MULTIPLE CO-MORBIDITIES, FURTHER SKIN DAMAGE MAY BE UNAVOIDABLE. RECOMMENDATIONS MADE FOR SKIN PROTECTION AND WOUND CARE. DISCUSSED WITH NURSING STAFF. FIRST STEP LOW AIRLOSS MATTRESS IS ON ORDER. MD IN AGREEMENT WITH PLAN OF CARE.
--- NOTE | 2021-09-21 07:15 | NUR ---
RN OPENING NOTES RECEIVED PT IN BED, SEDATED. ON ETT 7.5/23 CM ON THE LIP [facility], SETTINGS: AC:24, TV:450, FIO2:80% AND PEEP OF 8. NO SOB OR ANY S/SX OF ACUTE DISTRESS AT THIS TIME. SR ON THE MONITOR. IV ACCESS ON OCTAVIA PICC LINE INTACT, PATENT AND FLUSHED. IVF OF NS @50 ML/HR, LEVO @0.02 MCG/KG/MIN AND PROPOFOL @30 MCG/KG/MIN. OG TUBE IN PLACE. POSITIVE PLACEMENT NOTED, NO RESIDUAL. TUBE FEEDING OF GLUCERNA @30 ML/HR. LANDEROS CATH IN PLACE DRAINING TO A CLEAR, YELLOW URINE. SAFETY MEASURES IN PLACE. BED LOCKED AND IN LOWEST POSITION WITH SIDE RAILS UP. WILL CONTINUE TO MONITOR.
[2021-09-21] MEDS: FERROUS SULFATE UDC 300 MG/5 ML UDC GT SCH ×3 (08:32→17:08)
[2021-09-21] MEDS: PANTOPRAZOLE 40 MG TABLET.DR PO SCH (08:32)
[2021-09-21] MEDS: GLIMEPIRIDE 1 MG TABLET GT SCH ×3 (08:32→17:08)
[2021-09-21] MEDS: CYANOCOBALAMIN 500 MCG TABLET GT SCH (08:32)
[2021-09-21] MEDS: ASPIRIN EC 81 MG TABLET.DR PO SCH (08:33)
[2021-09-21] MEDS: DOCUSATE SODIUM LIQ 100 MG/10 ML UDC NG SCH ×2 (08:33→17:08)
[2021-09-21] MEDS: TIMOLOL MAL/DORZOLAM HCL OPHTH 10 ML BOTTLE EACHEYE SCH ×2 (08:33→17:09)
[2021-09-21] MEDS: SENNOSIDES 8.6 MG TABLET GT SCH ×2 (08:33→17:08)
[2021-09-21] MEDS: LINAGLIPTIN 5 MG TABLET GT SCH (08:33)
[2021-09-21] MEDS: FUROSEMIDE 40 MG/4 ML VIAL IV SCH (08:33)
[2021-09-21] MEDS: BRIMONIDINE TARTRATE OPHT SOLN 5 ML BOTTLE LEFTEYE SCH ×2 (08:34→17:09)
[2021-09-21] MEDS: NEUTRA PHOS 1 POWD.PACKET PO SCH ×2 (09:00→17:10)
--- NOTE | 2021-09-21 09:02 | NUR ---
SS consult requested for family meeting with MD. SW will follow up at a later time.
--- NOTE | 2021-09-21 09:16 | NUR ---
RT PER DR VALDEZ PEEP INCREASED TO 8. ABG RESULTS CONTINUE TO NOT CROSS OVER INTO [facility]. PAPER RESULTS ARE INSERTED INTO PATIENTS CHART Addendum: 09/21/21 at 0917 by CHRISTINA ESPINOSA RT Amended: Links added.
[2021-09-21 10:53] LABS: ABG BASE EXCESS -4.4 mmol/L; ABG OXYGEN SATURATION 90.6 % (92.0-98.5); ABG PCO2 33.2 mmHg (35.0-45.0); ABG PH 7.391 (7.350-7.450); ABG PO2 58.8 mmHg (75.0-100.0); AaDO2 260.4 mmHg; COHb 0.3 % (0.5-1.5); MetHb 0.2 % (0.0-1.5); O2Hb 90.1 % (94.0-97.0); SITE, ABG Right Radial
[2021-09-21] MEDS: ENOXAPARIN SODIUM 40 MG/0.4 ML DISP.SYRIN SQ SCH ×2 (11:42→23:00)
--- NOTE | 2021-09-21 11:43 | NUR ---
CHIDI Consult for: Family meeting with MDs regarding plan of care/update. CHIDI contacted Dr. Melvin to reach out to pt.'s daughter [Babatunde Bridges [phone]]. Dr. Melvin stated that he will call pt.'s daughter at noon.
--- NOTE | 2021-09-21 11:43 | NUR ---
RN NOTES PLATELET OF 70. OK TO GIVE LOVENOX PER DR. PHAM.
[2021-09-21 13:26] LABS: ABG BASE EXCESS -3.1 mmol/L; ABG PH 7.424 (7.350-7.450); AaDO2 339.6 mmHg; COHb 0.3 % (0.5-1.5); MetHb 0.1 % (0.0-1.5); O2Hb 86.7 % (94.0-97.0); SITE, ABG Right Radial
[2021-09-21] MEDS: IV NS 0.9% 1,000 ML IV PRN (14:00)
[2021-09-21] MEDS: GLUCERNA 1.2 1,000 ML BOTTLE GT PRN (17:10)
[2021-09-21] MEDS: NOREPINEPHRINE 8 MG in IV NS 0.9% 242 ML IV PRN (18:36)
--- NOTE | 2021-09-21 22:01 | NUR ---
WIRER, INITIAL ASSESSMENT. RECEIVED THE PT REST ON THE BED. ORALLY INTUBATED SEDATED W ITH PROPOFOL. ETT 7.5, LIP 23CMS,AC 24, TV 450,FIO2 60%, PEEP 5; SAT 98%. SENIOR TECHNICAL SUPPORT ENGINEER SHOWING S TACH. FC PATENT. HOB ELEVATED. OGT INTACT, GLUCERNA 30 ML/H.HOB ELEVATED. WILL CONTINUE TO MONITOR VITALS.
[2021-09-22] VITALS (75 sets, daily range): BP systolic 57–122; BP diastolic 29–76
[2021-09-22] MEDS: FLUDROCORTISONE 0.1 MG TABLET NG SCH ×4 (00:17→17:43)
[2021-09-22 04:34] LABS: BASOPHILS % (AUTO) 0.2 % (0.0-2.0); EOSINOPHILS % (AUTO) 1.9 % (0.0-6.0); HEMATOCRIT 32 % (39-51); HEMOGLOBIN 10.7 g/dL (13.5-17.5); LYMPHOCYTES # (AUTO) 0.6 K/uL (0.8-4.8); LYMPHOCYTES % (AUTO) 13.3 % (20.0-44.0); MEAN CORPUSCULAR HGB CONC 33 g/dl (31.0-36.0); MEAN CORPUSCULAR VOLUME 92 fL (80-96); MONOCYTES # (AUTO) 0.1 K/uL (0.1-1.30); MONOCYTES % (AUTO) 2.6 % (2.0-12.0); NEUTROPHILS # (AUTO) 3.8 K/uL (1.8-8.9); PLATELET COUNT (AUTO) 114 K/uL (150-450); WHITE BLOOD COUNT (AUTO) 4.7 K/uL (4.3-11.0)
[2021-09-22 04:38] LABS: CALCIUM, SERUM 7.9 mg/dL (8.5-10.1); CARBON DIOXIDE 26 mmol/L (21-32); CHLORIDE 114 mmol/L (98-107); CREATININE 1.1 mg/dL (0.6-1.3); GLUCOSE 299 mg/dL (74-106); MAGNESIUM 2.1 mg/dL (1.8-2.4); PHOSPHORUS 3.2 mg/dL (2.5-4.9); POTASSIUM 3.8 mmol/L (3.5-5.1); SODIUM SERUM 148 mmol/L (136-145); UREA NITROGEN, BLOOD 54 mg/dL (7-18)
[2021-09-22 05:07] LABS: CREATINE KINASE, TOTAL 63 U/L (39-308); FERRITIN 2013 ng/mL (8-388)
[2021-09-22] MEDS: HYDROCORTISONE SOD SUCCINATE 100 MG/2 ML VIAL IV SCH ×2 (05:39→12:04)
[2021-09-22] MEDS: CEFEPIME 2 GM in IV D5W 100 ML IV SCH ×2 (05:39→17:35)
[2021-09-22] MEDS: PROPOFOL 100 ML IV PRN ×3 (05:43→15:45)
[2021-09-22] MEDS: BLOOD SUGAR DIAGNOSTIC 1 EACH STRIP IN SCH ×4 (06:10→17:43)
[2021-09-22] MEDS: INSULIN REGULAR, HUMAN 100 UNIT/ML 3 ML VIAL SQ PRN ×3 (06:12→18:12)
--- NOTE | 2021-09-22 07:05 | NUR ---
FORMULA CLERK. AM CARE GIVEN. REMAINING SAME VENT SETTINGS TOLERATED WELL. SAT 98%. NO ACUTE DISTRESS NOTED. MARINE WELDER SHOWING IN AN OUT A FIB.AFEBRILE. TURN NAD REPOSITION Q2H, IVF NS 50 ML/H, DIPRIVAN 40MCG/KG/MIN, LEVOPHED 0.02 MCG/KG/MIN. CONTINUE TO MONITOR VITALS.
[2021-09-22 07:40] LABS: ABG BASE EXCESS -2.3 mmol/L; ABG OXYGEN SATURATION 93.1 % (92.0-98.5); ABG PCO2 33.2 mmHg (35.0-45.0); ABG PH 7.427 (7.350-7.450); ABG PO2 69.3 mmHg (75.0-100.0); COHb 0.3 % (0.5-1.5); MetHb 0.2 % (0.0-1.5); O2Hb 92.6 % (94.0-97.0); SITE, ABG Right Radial
[2021-09-22] MEDS: SENNOSIDES 8.6 MG TABLET GT SCH ×2 (08:08→17:43)
[2021-09-22] MEDS: ASPIRIN EC 81 MG TABLET.DR PO SCH (08:08)
[2021-09-22] MEDS: FERROUS SULFATE UDC 300 MG/5 ML UDC GT SCH ×3 (08:08→17:40)
[2021-09-22] MEDS: GLIMEPIRIDE 1 MG TABLET GT SCH ×3 (08:08→17:43)
[2021-09-22] MEDS: PANTOPRAZOLE 40 MG TABLET.DR PO SCH (08:08)
[2021-09-22] MEDS: DOCUSATE SODIUM LIQ 100 MG/10 ML UDC NG SCH ×2 (08:08→17:40)
[2021-09-22] MEDS: CYANOCOBALAMIN 500 MCG TABLET GT SCH (08:08)
[2021-09-22] MEDS: LINAGLIPTIN 5 MG TABLET GT SCH (08:10)
[2021-09-22] MEDS: ENOXAPARIN SODIUM 40 MG/0.4 ML DISP.SYRIN SQ SCH (08:11)
[2021-09-22] MEDS: BRIMONIDINE TARTRATE OPHT SOLN 5 ML BOTTLE LEFTEYE SCH ×2 (09:21→18:08)
[2021-09-22] MEDS: TIMOLOL MAL/DORZOLAM HCL OPHTH 10 ML BOTTLE EACHEYE SCH ×2 (09:21→18:08)
--- NOTE | 2021-09-22 10:38 | NUR ---
TRIGLYCERIDES ORDERED ,TO ADD WITH MORNING LAB PER PHARMACY REQUEST.PATIENT IS ON PROPOFOL.
--- NOTE | 2021-09-22 11:47 | NUR ---
MADE AWARE ABOUT TRIGLYCERIDE LEVEL.CONTINUE THE SAME AND TRIGLYCERIDE LEVEL IN AM.SEEN BY FRANCES LIGHT.UPDATED ABOUT PATIENT CONDITION.
[2021-09-22] MEDS ORDERED: MORPHINE SULFATE INJ 2 MG/ML DISP.SYRIN IV PRN (13:00)
--- NOTE | 2021-09-22 13:16 | NUR ---
PATIENT HR IN 140-150'S .NO FEVER.ON PROPOFOL.LOSS PREVENTION REPRESENTATIVE KULDEEP MADE AWARE.GOT NEW ORDERS.PLACED AN ORDER FRO EKG FOR RHYTHM CONFIRMATION.
--- NOTE | 2021-09-22 13:37 | NUR ---
RT Stat EKG done, results reported to Araceli MARTINEZ and Lisha nielsen. Addendum: 09/22/21 at 1338 by MATTHEW SCHUSTER RT Amended: Links added.
[2021-09-22] MEDS ORDERED: AMIODARONE 450 MG in IV D5W 241 ML IV PRN (14:00)
[2021-09-22] MEDS ORDERED: AMIODARONE 150 MG in IV D5W 100 ML IV ONE (14:00)
--- NOTE | 2021-09-22 15:00 | NUR ---
PATIENT NOTED WITH AFIB WITH RVR HR IN 150'S ,LAKISHA EPDERSEN MADE AWARE.RECEIVE NEW ORDER FOR AMIODARONE BOLUS AND DRIP,PHARMACY MADE AWARE FOR STAT PREPARATION SPOKE TO [facility].
--- NOTE | 2021-09-22 15:04 | NUR ---
SEEN BY ,UPDATED ABOUT PATIENT CONDITION WITH LABS,GOT NEW ORDER FOR H2O FLUSH GT 150ML Q4H.
[2021-09-22] MEDS: NOREPINEPHRINE 8 MG in IV NS 0.9% 242 ML IV PRN (15:54)
[2021-09-22] MEDS ORDERED: NOREPINEPHRINE 32 MG in IV NS 0.9% 218 ML IV PRN (18:30)
--- NOTE | 2021-09-22 19:10 | NUR ---
RECEIVED PT ON BED ON ETT/VENT SETTING PER MD, FIO2 60% SPO2 NOT DETECTED WITH SPOX, BP IS LOW AND PULSE IS VERY WEAK, PT IS CURRENTLY ON LEVOPHED @ 0.9 MCG/KG/MIN MAX IT OUT AND ASK MORNING SHIFT NURSE TO ASK MD FOR ANOTHER PRESSOR, PT HAVE OGTUBE ON PLACE WITH ONGOING GLUCERNA @ 30ML/HR RESIDUAL 50ML, HAVE LANDEROS CATHETER ON PLACE WITH YELLOW URINE DRAINING VIA GRAVITY,WILL CONT TO MONITOR
[2021-09-22] MEDS ORDERED: PHENYLEPHRINE 100 MG in IV NS 0.9% 240 ML IV PRN (19:30)
--- NOTE | 2021-09-22 19:30 | NUR ---
REPORT GIVEN TO PM NURSE.PATIENT BP RUNNING LOW MD ROSADO MADE AWARE .STARTED ON NORSYNEPHRINE. MADE AWARE ABOUT AMIODARONE INFUSION CONVERTED TO SR HR IN 78-80'S.ORDER TO CONTINUE INFUSION.O2 MONITOR READING ON AND OFF 92-96%.ALL SAFETY MEASURES IN PLACE.BED IS LOW AND IN LOCKED POSITION.CALL LIGHT IN REACH.BED ALARM ON .WOUND CARE AND Q2H POSITIONING DONE.SEDATION VACATION NOT TOLERATED,.
--- NOTE | 2021-09-22 19:45 | NUR ---
PT BP IS STILL VERY HARD TO GET, MANUAL BP DONE WITH SYSTOLIC OF 60, NEOSYNEPHRINE STARTED AMIODARONE WAS HOLD ALSO PROPOFOL, MANUAL PULSE CHECKED DONE VIA CAROTID ARTERY VERY WEAK THRU DOPPLER, CALL ASSISTANCE FROM RT WILL CONT TO MONITOR THE PT
--- NOTE | 2021-09-22 19:50 | NUR ---
PT HAVE NO HR NO PULSE CODE BLUE CALLED, REFER TO CODE BLUE SHEET
--- NOTE | 2021-09-22 20:00 | NUR ---
INFORMED FAMILY OF THE SITUATION, WITH WISH TO CONTINUE PT IN FULL CODE
--- NOTE | 2021-09-22 20:10 | NUR ---
RT NOTE CODE BLUE CALLED ON PT, ACLS PROTOCOLS AND CPR INITIATED. ROSC UNABLE TO BE ACHIEVED. PT .
--- NOTE | 2021-09-22 20:10 | NUR ---
PT @ 2004 LAW PRONOUNCE THE PT , FAMILY MADE AWARE
[2021-09-22] MEDS ORDERED: EPINEPHRINE (1:10,000) SYRINGE 1 MG/10 ML DISP.SYRIN IVP ONE (20:21)
--- NOTE | 2021-09-22 20:25 | NUR ---
POST MORTEM CARE DONE TO THE PT, NAME TAG IS SECURE, FAMILY WILL COME TO SEE THE PT
--- NOTE | 2021-09-22 20:48 | NUR ---
CALLED [facility] AND TALK TO MS ALIS LORA AND SHE SAID THAT [facility] WILL NOT CONTINUE WITH THE REFERAL AND WE CAN RELEASE THE BODY TO THE FAMILY WITH REFERENCE # [id number]
[2021-10-15] MEDS ORDERED: ERGOCALCIFEROL (VITAMIN D 2) 50,000 UNIT CAPSULE PO SCH (09:00)
[2021-10-15] MEDS ORDERED: ERGOCALCIFEROL (VITAMIN D 2) 50,000 UNIT CAPSULE GT SCH (09:00)
== END 2021-09-22 20:05 | DRG 870 ==
LOC: ER 15:45 → ICU 18:44
PROVIDERS: ADMIT Internal Medicine; ATTEND Nurse Practitioner Acute Care
PROC: 02HV33Z Insertion of Infusion Device into Superior Vena Cava, Percutaneous Approach (ICD-10-PCS; 2021-09-14)
PROC: B548ZZA Ultrasonography of Superior Vena Cava, Guidance (ICD-10-PCS; 2021-09-14)
PROC: 5A1955Z Respiratory Ventilation, Greater than 96 Consecutive Hours (ICD-10-PCS; principal; 2021-09-16)
PROC: 0BH18EZ Insertion of Endotracheal Airway into Trachea, Via Natural or Artificial Opening Endoscopic (ICD-10-PCS; 2021-09-16)
PROC: XW033E5 Introduction of Remdesivir Anti-infective into Peripheral Vein, Percutaneous Approach, New Technology Group 5 (ICD-10-PCS; 2021-09-16)
PROC: XW033H5 Introduction of Tocilizumab into Peripheral Vein, Percutaneous Approach, New Technology Group 5 (ICD-10-PCS; 2021-09-17)
PROC: 5A12012 Performance of Cardiac Output, Single, Manual (ICD-10-PCS; 2021-09-22)
DX: A41.89 Other specified sepsis (principal); J96.01 Acute respiratory failure with hypoxia; U07.1 COVID-19; N17.0 Acute kidney failure with tubular necrosis; J12.82 Pneumonia due to coronavirus disease 2019; R65.21 Severe sepsis with septic shock; G93.41 Metabolic encephalopathy; E44.0 Moderate protein-calorie malnutrition; E27.40 Unspecified adrenocortical insufficiency; L89.156 Pressure-induced deep tissue damage of sacral region; D69.6 Thrombocytopenia, unspecified; E88.09 Other disorders of plasma-protein metabolism, not elsewhere classified; E83.39 Other disorders of phosphorus metabolism; I11.0 Hypertensive heart disease with heart failure; Z20.822 Contact with and (suspected) exposure to COVID-19; Z95.5 Presence of coronary angioplasty implant and graft; E11.9 Type 2 diabetes mellitus without complications; I25.10 Atherosclerotic heart disease of native coronary artery without angina pectoris; E78.5 Hyperlipidemia, unspecified; H40.9 Unspecified glaucoma; D63.8 Anemia in other chronic diseases classified elsewhere; Z90.49 Acquired absence of other specified parts of digestive tract; I50.9 Heart failure, unspecified; Z68.28 Body mass index [BMI] 28.0-28.9, adult
CPT/HCPCS: 31720; 36415; 36569; 36600; 71045-TC; 80048-TC; 80053-TC; 80061-TC; 80076-TC; 80202-TC; 81001; 82533; 82550-TC; 82728-TC; 82803-TC; 82962-TC; 83605-TC; 83615-TC; 83735-TC; 83880; 84100-TC; 84443-TC; 84478-TC; 84484-TC; 85025-TC; 85378-TC; 85610-TC; 85730-TC; 86140-TC; 86480; 86635; 86803; 87040-TC; 87081-TC; 87086-TC; 87806; 87899; 92526; 92611-TC; 92950-TC; 93307-TC; 94002-TC; 94003-TC; 94760-TC; 94799-TC; 99082-TC; A4216; A9563; C9803; G0378; J0171; J0282; J0330; J0456; J0692; J1100; J1200; J1650; J1720; J1815; J1940; J2060; J2270; J2370; J3262; J3370; J3475; J3490; J7030; J7040; J7050; J7060; U0003